=== PATIENT | female | born 2005 | race Caucasian/White ===

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

== ENCOUNTER 2024-05-28 10:46 | Emergency (ER) | payer MEDICAID ==
[~2024-05-28] VITALS: Ht 175.3 cm; Wt 98.0 kg
[~2024-05-28 10:46] MED LIST changes: -AMOX-117 PO
[2024-05-28 11:02] VITALS: BP 111/69; PULSE 96; RESP 16; TEMP 97.3; O2SAT 98
== END 2024-05-28 12:56 | disposition home or self-care (01) ==
LOC: ER 10:46
DX: S06.0X0A Concussion without loss of consciousness, initial encounter (principal); E07.9 Disorder of thyroid, unspecified; Z79.1 Long term (current) use of non-steroidal anti-inflammatories (NSAID); W31.89XA Contact with other specified machinery, initial encounter; Y93.E2 Activity, laundry; Y92.89 Other specified places as the place of occurrence of the external cause; Y99.8 Other external cause status
CPT/HCPCS: 99281; 99282